=== PATIENT | female | born 1960 | race Caucasian/White ===

== ENCOUNTER 2017-04-27 20:56 | Emergency (ER) | payer MEDICARE ==
[~2017-04-27] VITALS: Ht 172.7 cm; Wt 113.6 kg
[~2017-04-27 20:56] MED LIST: CLEOCIN HCL300 MG PO; CYMBALTA 60MG60 MG PO; DEXILANT60 MG PO; NORCO 325 MG-51 TAB PO; NORCO 325 MG-7.1 TAB PO; NYSTATIN POWDER30 GM TOP; PEN-VEE K250 MG PO; PERCOCET 325 MG1 TA2 PO; PERCOCET 325 MG1 TA3 PO; SINGULAIR 110 MG/TAB PO; SYNTHROID0.1 MG/TAB PO; VITAMIN D1000 IU
[2017-04-27 20:59] VITALS: BP 136/69; TEMP 98.2
[2017-04-27] MEDS ORDERED: DEXILANT60 MG PO (21:03)
[2017-04-27 22:36] VITALS: PULSE 97
== END 2017-04-27 22:37 | disposition home or self-care (01) ==
LOC: COL.ER 20:56
DX: S30.0XXA Contusion of lower back and pelvis, initial encounter (principal); S09.90XA Unspecified injury of head, initial encounter; F41.9 Anxiety disorder, unspecified; J45.909 Unspecified asthma, uncomplicated; F32.9 Major depressive disorder, single episode, unspecified; W01.198A Fall on same level from slipping, tripping and stumbling with subsequent striking against other object, initial encounter; Y92.009 Unspecified place in unspecified non-institutional (private) residence as the place of occurrence of the external cause

== ENCOUNTER 2017-08-20 14:38 | Emergency (ER) | payer MEDICARE ==
[~2017-08-20] VITALS: Ht 170.2 cm; Wt 113.6 kg
[2017-08-20 14:45] VITALS: BP 135/89; PULSE 81; TEMP 97.1
[2017-08-20] MEDS ORDERED: VALIUM 2MG T2 MG/TAB PO (18:22)
== END 2017-08-20 18:44 | disposition home or self-care (01) ==
LOC: COL.ER 14:38
DX: S09.90XA Unspecified injury of head, initial encounter (principal); S16.1XXA Strain of muscle, fascia and tendon at neck level, initial encounter; F32.9 Major depressive disorder, single episode, unspecified; W20.8XXA Other cause of strike by thrown, projected or falling object, initial encounter

== ENCOUNTER 2017-09-14 00:41 | Emergency (ER) | payer MEDICARE ==
[~2017-09-14] VITALS: Ht 170.2 cm; Wt 128.8 kg
[~2017-09-14 00:41] MED LIST changes: +VALIUM 2MG T2 MG/TAB PO
[2017-09-14 00:44] VITALS: TEMP 98.3
[2017-09-14 01:36] VITALS: BP 166/79; PULSE 83
== END 2017-09-14 01:55 | disposition home or self-care (01) ==
LOC: COL.ER 00:41
DX: S63.501A Unspecified sprain of right wrist, initial encounter (principal); J45.909 Unspecified asthma, uncomplicated; F32.9 Major depressive disorder, single episode, unspecified; F41.9 Anxiety disorder, unspecified; E03.9 Hypothyroidism, unspecified; W01.198A Fall on same level from slipping, tripping and stumbling with subsequent striking against other object, initial encounter

== ENCOUNTER 2017-09-20 12:27 | Emergency (ER) | payer MEDICARE ==
[~2017-09-20] VITALS: Ht 170.2 cm; Wt 113.6 kg
[2017-09-20 12:34] VITALS: BP 138/81; PULSE 90; TEMP 97.7
== END 2017-09-20 12:42 | disposition left against medical advice (07) ==
LOC: COL.ER 12:27
DX: M54.5 Low back pain (principal)

== ENCOUNTER 2017-09-25 12:32 | Emergency (ER) | payer MEDICARE ==
[~2017-09-25] VITALS: Ht 170.2 cm; Wt 113.6 kg
[2017-09-25 12:34] VITALS: BP 148/73; TEMP 97
[2017-09-25] MEDS ORDERED: ZANAFLEX 4MG TAB4 MG PO (13:53)
[2017-09-25 14:09] VITALS: PULSE 90
== END 2017-09-25 14:09 | disposition home or self-care (01) ==
LOC: COL.ER 12:32
DX: S39.012A Strain of muscle, fascia and tendon of lower back, initial encounter (principal); J45.909 Unspecified asthma, uncomplicated; F32.9 Major depressive disorder, single episode, unspecified; F41.9 Anxiety disorder, unspecified; E03.9 Hypothyroidism, unspecified; Z90.49 Acquired absence of other specified parts of digestive tract; X50.0XXA Overexertion from strenuous movement or load, initial encounter

== ENCOUNTER 2017-11-15 23:09 | Emergency (ER) | payer MEDICARE ==
[~2017-11-15] VITALS: Ht 170.2 cm; Wt 122.1 kg
[~2017-11-15 23:09] MED LIST changes: +ZANAFLEX 4MG TAB4 MG PO
[2017-11-15 23:13] VITALS: BP 124/69; TEMP 97
[2017-11-16 00:20] VITALS: PULSE 76
== END 2017-11-16 00:20 | disposition home or self-care (01) ==
LOC: COL.ER 23:09
DX: S40.012A Contusion of left shoulder, initial encounter (principal); S90.02XA Contusion of left ankle, initial encounter; W17.2XXA Fall into hole, initial encounter; X50.0XXA Overexertion from strenuous movement or load, initial encounter; Y92.009 Unspecified place in unspecified non-institutional (private) residence as the place of occurrence of the external cause

== ENCOUNTER 2020-11-21 02:37 | Emergency (ER) | payer MEDICARE ==
[~2020-11-21] VITALS: Ht 170.2 cm; Wt 109.1 kg
[2020-11-21 02:43] VITALS: TEMP 97.2
[2020-11-21] MEDS ORDERED: NORCO 325 MG-51 TAB PO (03:48)
[2020-11-21 04:00] VITALS: BP 136/80; PULSE 80
== END 2020-11-21 04:00 | disposition home or self-care (01) ==
LOC: COL.ER 02:37
DX: S46.002A Unspecified injury of muscle(s) and tendon(s) of the rotator cuff of left shoulder, initial encounter (principal); J45.909 Unspecified asthma, uncomplicated; Z88.6 Allergy status to analgesic agent; X58.XXXA Exposure to other specified factors, initial encounter